=== PATIENT | male | born 1950 | race Caucasian/White ===

== ENCOUNTER → 2019-06-06 18:45 | Outpatient (CLI) | payer MEDICARE, SELFPAY ==
--- NOTE | 2019-06-06 18:57 | RAD_ITS ---
STUDY: X-RAY - CERVICAL SPINE REASON FOR EXAM: Male, 69 years old. neck pain TECHNIQUE: 5 view(s) of the cervical spine were obtained. COMPARISON: February 03, 2014 FINDINGS: Normal cervical lordosis. There is multi-level endplate spondylosis. There is multi-level degenerative disc disease with multilevel disc space narrowing. The soft tissue structures are unremarkable. RAD/Cerv Spine 4 or 5 Views IMPRESSION: Moderate degenerative changes of the spine. Electronically Signed: Kaia Swan MD at 9:50 EST Tel , Service support ,
== END ==
PROVIDERS: PCP Family Medicine; Referring Provider Anesthesiology; Visit Provider Anesthesiology
DX: M54.2 Cervicalgia (principal)
CPT/HCPCS: 72050